=== PATIENT | male | born 2000 | race American Indian/Alaskan Native ===

== ENCOUNTER 2020-01-09 05:46 | Observation (INO) | payer OTHER, MEDICAID ==
[2020-01-09 06:27] LABS: CHLORIDE,CL 107 mEq/L (98-106); SODIUM,NA 144 mEq/L (136-145)
[2020-01-09] MEDS ORDERED: Sodium Chloride 0.9% 1,000 ML IV ONE (06:54)
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
[2020-01-09] MEDS ORDERED: Sodium Chloride 0.9% 1,000 ML IV SCH ×2 (09:30→10:01)
[2020-01-09] MEDS ORDERED: Ondansetron 4 MG/2 ML SDV IVPUSH PRN (10:01)
[2020-01-09] MEDS: Acetaminophen 325 MG Tab PO PRN ×3 (12:23→23:13)
[2020-01-10 04:21] VITALS: PULSE 73
[2020-01-10] MEDS: Acetaminophen 325 MG Tab PO PRN (08:09)
[2020-01-10 08:18] VITALS: BP 138/75
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
== END 2020-01-10 09:05 | disposition home or self-care (01) ==
LOC: CC.ED 05:46 → CC.MS 08:10 → UNDOADMOB 08:10 → CC.MS 08:24
PROVIDERS: ADMIT Physician Assistant Medical; ATTEND Family Medicine
DX: R07.89 Other chest pain (principal); I60.9 Nontraumatic subarachnoid hemorrhage, unspecified; F10.929 Alcohol use, unspecified with intoxication, unspecified; F32.9 Major depressive disorder, single episode, unspecified; Z79.899 Other long term (current) drug therapy; V49.9XXA Car occupant (driver) (passenger) injured in unspecified traffic accident, initial encounter
CPT/HCPCS: 36415; 70450; 71250; 72125; 74176; 80053; 80305-QW; 80307; 81001; 82150; 83605; 85027; 85610; 94761; 99285-25; A9270-GY; J7030